=== PATIENT | male | born 1960 | race Two or more races ===

== ENCOUNTER 2016-10-03 05:54 | Day surgery (SDC) | payer BC ==
[~2016-10-03] VITALS: Ht 162.6 cm; Wt 71.7 kg
[2016-10-03 06:56] VITALS: Ht 162.6 cm; Wt 71.7 kg
[2016-10-03 07:38] VITALS: BP 110/72; PULSE 63; RESP 20
[2016-10-03] MEDS ORDERED: ATROPINE 1 MG/10 ML SYRINGE ONE (08:38)
[2016-10-03] MEDS ORDERED: MIDAZOLAM 1 MG/ML 2 ML INJ ONE ×2 (08:39)
[2016-10-03] MEDS ORDERED: FENTAnyl 50 MCG/ML VIAL ONE (08:39)
[2016-10-03 09:05] VITALS: BP 111/71; PULSE 80; RESP 17
--- NOTE | 2016-10-03 10:43 | GILP ---
DATE OF PROCEDURE: 10/03/2016 NAME OF PROCEDURE: Colonoscopy. SURGEON: Kashif Vasquez MD PREOPERATIVE DIAGNOSIS: Screening colonoscopy. POSTOPERATIVE DIAGNOSES: 1. Colonoscopy all the way to the cecum. 2. Poor prep making the exam very suboptimal. 3. Internal hemorrhoids. INDICATION FOR THE PROCEDURE: Mr. Snow Tomlinson is a 56-year-old male patient who was scheduled for screening colonoscopy. The procedure and possible complications are well explained to the patient. He understood and conse nted to the procedure. DESCRIPTION OF PROCEDURE: Under the influence of fentanyl and Versed, the colonoscope was carefully introduced in the rectum and under direct vision it was advanced all the way to the cecum. FINDINGS: The patient had poor prep making the exam very suboptimal. The patient was noted to have internal hemorrhoids. He tolerated the procedure very well and there was no complication from the procedure. At the end o f the procedure, he was awake with stable vital signs and he was discharged home to the care of his family. IMPRESSION: 1. Colonoscopy all the way to the cecum. 2. Poor prep making the exam very suboptimal. 3. Internal hemorrhoids. PLAN: The patient will need repeat colonoscopy with better preparation in 1 year. Dictated By: KASHIF BAIRES/RAFAEL Conf#: [id number] DID#: [id number] CC: KASHIF VASQUEZ MD;*EndCC*
== END 2016-10-03 11:00 | disposition home or self-care (01) ==
LOC: GIL 05:54
PROVIDERS: ATTEND Internal Medicine Gastroenterology
DX: Z12.11 Encounter for screening for malignant neoplasm of colon (principal); K64.8 Other hemorrhoids
CPT/HCPCS: 45378; J0461; J2250; J3010; Z7610

== ENCOUNTER 2018-05-09 06:05 | Day surgery (SDC) | END 2018-05-09 11:42 | disposition home or self-care (01) ==